=== PATIENT | male | born 1965 | race Caucasian/White ===

== ENCOUNTER → 2016-11-25 | Outpatient (CLI) | payer MEDICARE ==
[~2016-11-25] MED LIST: LISINOPRIL10 MG PO; METOPROLOL SUCC50 M1 PO; OXYCODONE HCL5 MG PO
[2016-11-25 18:27] LABS: HEMOGLOBIN 14.8 g/dL (14.1-18.0); LYMPH # 2.1 K/mm3 (0.7-4.5); LYMPH % 27.8 % (10-50)
[2016-11-25 20:17] LABS: BUN 17 mg/dL (7-18)
[2016-11-25 20:18] LABS: GFR (ESTIMATED) 78 ML/MIN (>60)
[2016-11-27 05:36] LABS: HBsAg Screen Negative (Negative); Hep A Ab, IgM Negative (Negative); Hep B Core Ab, IgM Negative (Negative); Hep C Virus Ab <0.1 (0.0-0.9)
== END ==
LOC: LAB 17:01
PROVIDERS: Emergency Medicine
DX: R53.1 Weakness (principal); Z79.899 Other long term (current) drug therapy